=== PATIENT | female | born 1980 | race Hispanic/Latino ===

== ENCOUNTER 2018-09-05 05:48 | Emergency (ER) | payer OTHER, SELFPAY ==
[2018-09-05] MEDS ORDERED: Ketamine 50 MG/ML (10ML VIAL) ONE (06:26)
[2018-09-05] MEDS ORDERED: Fentanyl 100 MCG/2 ML VIAL ONE (06:26)
[2018-09-05] MEDS ORDERED: Ketorolac Tromethamine 30 MG/ML VIAL ONE (07:02)
[2018-09-05] MEDS ORDERED: Ondansetron PF 4 MG/2 ML Vial ONE (07:16)
--- NOTE | 2018-09-05 07:20 | RAD ---
RIGHT SHOULDER 3 VIEWS: Date: 09/05/18 An anterior subcoracoid dislocation of the humeral head is present. No gross fracture was evident. Th e AC joint is normal in width. IMPRESSION: Anterior shoulder dislocation. POS: HOME
--- NOTE | 2018-09-05 19:49 | RAD ---
RIGHT SHOULDER TWO VIEWS: Date: 09-05-18 FINDINGS: Post reduction views shows the anterior dislocation has been successful reduced. No fracture was appa rent. The AC joint is normal in width. IMPRESSION: Successful reduction. POS: HOME
== END 2018-09-05 08:00 | disposition home or self-care (01) ==
LOC: BURERS 05:48
DX: S43.014A Anterior dislocation of right humerus, initial encounter (principal); X50.0XXA Overexertion from strenuous movement or load, initial encounter
CPT/HCPCS: 23650; 96374; 96375; J1885; J2405; J3010